=== PATIENT | male | born 1995 | race African-American/Black ===

== ENCOUNTER 2020-08-25 02:45 | Emergency (ER) | payer OTHER, MEDICAID ==
[~2020-08-25] VITALS: Ht 172.7 cm; Wt 104.3 kg
[2020-08-25] MEDS ORDERED: KETOROLAC TROMETH 60MG/2ML VIAL IM ONE (04:15)
[2020-08-25 04:25] VITALS: BP 140/97
[2020-08-25 04:28] LABS: Urine Bacteria NONE SEEN /hpf (None Seen); Urine Blood Negative /uL (Negative); Urine Mucus FEW (None Seen); Urine Specific Gravity 1.022 (1.001-1.035); Urine WBC <1 /hpf (0 - 3)
[2020-08-25] MEDS ORDERED: cefTRIAXone SODIUM 250 MG VL IM ONE (05:15)
[2020-08-25] MEDS ORDERED: AZITHROMYCIN 250 MG TAB PO ONE (05:15)
[2020-08-25] MEDS ORDERED: LIDOCAINE 1% HCL (LOCAL ANESTH.) INJ 20ML MDV ID ONE (05:30)
== END 2020-08-25 05:56 | disposition home or self-care (01) ==
LOC: ER 02:45
DX: N48.89 Other specified disorders of penis (principal); Z20.2 Contact with and (suspected) exposure to infections with a predominantly sexual mode of transmission
CPT/HCPCS: 81001; 96372; 99284; J0696; J1885

== ENCOUNTER 2020-11-01 13:11 | Emergency (ER) | payer MEDICAID, OTHER ==
[~2020-11-01] VITALS: Ht 175.3 cm; Wt 106.6 kg
[2020-11-01] MEDS ORDERED: cefTRIAXone SOD 1,000 MG VL IM ONE (14:45)
[2020-11-01 15:04] VITALS: BP 143/84
== END 2020-11-01 15:02 | disposition home or self-care (01) ==
LOC: ER 13:11
DX: J20.9 Acute bronchitis, unspecified (principal); J03.80 Acute tonsillitis due to other specified organisms; F17.210 Nicotine dependence, cigarettes, uncomplicated
CPT/HCPCS: 71046; 96372; 99283; J0696